=== PATIENT | female | born 1950 | race Caucasian/White ===

== ENCOUNTER → 2016-11-14 | Outpatient (CLI) | payer MEDICARE, BC | LOC: COL.RAD 08:15 | DX: Q62.39 Other obstructive defects of renal pelvis and ureter (principal); Q60.3 Renal hypoplasia, unilateral; N28.89 Other specified disorders of kidney and ureter ==

== ENCOUNTER → 2017-02-26 | Outpatient (CLI) | payer MEDICARE, BC | LOC: COL.RAD 14:19 | DX: M19.172 Post-traumatic osteoarthritis, left ankle and foot (principal) | CPT/HCPCS: J3301; Q9967 ==

== ENCOUNTER → 2018-02-09 | Outpatient (CLI) | payer MEDICARE, BC | LOC: MC.RAD 11:20 | DX: Z12.31 Encounter for screening mammogram for malignant neoplasm of breast (principal) ==

== ENCOUNTER → 2018-02-20 | Outpatient (CLI) | payer MEDICARE, BC | LOC: COL.RAD 12:17 | DX: Q62.39 Other obstructive defects of renal pelvis and ureter (principal) | CPT/HCPCS: A9562 ==

== ENCOUNTER → 2018-02-26 | Outpatient (CLI) | payer MEDICARE, BC | LOC: COL.RAD 10:30 | DX: M19.172 Post-traumatic osteoarthritis, left ankle and foot (principal) | CPT/HCPCS: J3301; Q9967 ==

== ENCOUNTER → 2018-10-22 | Outpatient (CLI) | payer MEDICARE, BC | LOC: COL.RAD 11:15 | DX: M19.172 Post-traumatic osteoarthritis, left ankle and foot (principal) | CPT/HCPCS: J3301; Q9967 ==

== ENCOUNTER → 2019-03-02 | Outpatient (CLI) | payer MEDICARE, BC | LOC: MC.RAD 13:30 | DX: S29.9XXA Unspecified injury of thorax, initial encounter (principal); N63.11 Unspecified lump in the right breast, upper outer quadrant | CPT/HCPCS: G0279 ==

== ENCOUNTER → 2020-04-18 | Outpatient (CLI) | payer MEDICARE, BC | LOC: MC.RAD 03-29 10:45 | DX: Z12.31 Encounter for screening mammogram for malignant neoplasm of breast (principal) ==

== ENCOUNTER 2020-07-19 07:39 | Day surgery (SDC) | payer MEDICARE, BC ==
[~2020-07-19 07:39] MED LIST: ASPIRIN E.C. 8181 MG PO; CALCIUM 600/VIT1 CA1 PO; EPA FISH OIL1 SGL PO; HYZAAR 25 MG-101 TAB PO; ONE-A-DAY ESSE1 EACH PO; PAXIL40 MG PO; PRAVACHOL 20MG20 MG PO; PROBIOTIC FORMU1 CAP PO; STOOL SOFTENER100 M2 PO; SYNTHROID0.05 MG/TA PO; VITAMIN B122500 MCG SL; VITAMINC1000TA PO; VITAMIND3 5000 PO; [UNRECOGNIZED DRUG - OTHER] PO; [UNRECOGNIZED DRUG - OTHER] PO
--- NOTE | 2020-07-19 09:38 | NUR ---
Initial visit; Patient thanked Floor Molder for offering comfort and prayer prior to her surgical procedure.
[2020-07-19 11:16] VITALS: BP 157/73; PULSE 66
--- NOTE | 2020-07-19 11:18 | NUR ---
SEE MERGE DOCUMENTATION FOR MEDICATION ADMINISTRATION TIMES AND INTRA/POST PROCEDURE SEDATION ASSESSMENTS.
[2020-07-20 13:00] LABS: INR 1.1 (0.8-3.0); PROTHROMBIN TIME 12.6 SECONDS (9.7-12.8)
[2020-07-20 13:02] LABS: CALCIUM 9.1 mg/dL (8.4-10.2); CREATININE, serum 0.81 (0.52-1.25); POTASSIUM 3.6 mmol/L (3.4-5.0)
[2020-07-20 16:29] LABS: MEAN CELL VOLUME 88 fl (80.0-100.0); MEAN CORPUSCULAR HEMOGLOBIN 28 pg (27.0-31.0); MEAN CORPUSCULAR HGB CONC 32 g/dl (33.0-37.0); MEAN PLATELET VOLUME 10.3 fl (7.4-10.4); PLATELET COUNT 188 K/mm3 (130-400); RED BLOOD COUNT 3.88 M/mm3 (4.10-5.30)
== END 2020-07-20 12:48 | disposition home or self-care (01) ==
LOC: COL.CAR 07:39
PROVIDERS: Internal Medicine Cardiovascular Disease
DX: I25.10 Atherosclerotic heart disease of native coronary artery without angina pectoris (principal); I27.20 Pulmonary hypertension, unspecified; I08.3 Combined rheumatic disorders of mitral, aortic and tricuspid valves; D64.9 Anemia, unspecified; F32.9 Major depressive disorder, single episode, unspecified; E78.5 Hyperlipidemia, unspecified; I10 Essential (primary) hypertension; E03.9 Hypothyroidism, unspecified; M19.90 Unspecified osteoarthritis, unspecified site; Z90.710 Acquired absence of both cervix and uterus; Z88.8 Allergy status to other drugs, medicaments and biological substances; Z88.1 Allergy status to other antibiotic agents; Z79.82 Long term (current) use of aspirin; G47.33 Obstructive sleep apnea (adult) (pediatric); Z86.718 Personal history of other venous thrombosis and embolism; Z87.820 Personal history of traumatic brain injury
CPT/HCPCS: C1760; C1769; C1894; J1644; J2250; J2704; J3010; Q9967

== ENCOUNTER 2020-08-09 14:44 | Outpatient (CLI) | payer MEDICARE, BC ==
[2020-08-09] VITALS (7 sets, daily range): BP systolic 126–132; BP diastolic 52–73; PULSE 58–71; TEMP 97.9
[~2020-08-09] VITALS: Ht 160 cm; Wt 84.2 kg
== END 2020-08-09 16:30 | disposition home or self-care (01) ==
LOC: EUO 14:44
DX: Z23 Encounter for immunization (principal); U07.1 COVID-19

== ENCOUNTER 2021-04-07 19:01 | Emergency (ER) | payer MEDICARE, BC ==
[~2021-04-07] VITALS: Ht 160 cm; Wt 79.5 kg
[2021-04-07] MEDS ORDERED: PERCOCET 325 MG1 TA2 PO (21:27)
[2021-04-07 22:01] VITALS: BP 118/84; PULSE 65; TEMP 98.4
== END 2021-04-07 22:01 | disposition home or self-care (01) ==
LOC: COL.ER 19:01
DX: M25.552 Pain in left hip (principal); I10 Essential (primary) hypertension; E03.9 Hypothyroidism, unspecified; E78.5 Hyperlipidemia, unspecified; Z79.890 Hormone replacement therapy; Z79.899 Other long term (current) drug therapy; W01.0XXA Fall on same level from slipping, tripping and stumbling without subsequent striking against object, initial encounter